=== PATIENT | female | born 2000 | race Caucasian/White ===

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

== ENCOUNTER 2021-05-06 21:24 | Outpatient (CLI) | payer OTHER ==
[~2021-05-06 21:24] MED LIST: TOPAMAX25 MG PO; TRAZODONE HCL100 MG PO; ZOLOFT25 MG PO
== END 2021-05-07 00:24 | disposition home or self-care (01) ==
LOC: GENOP 21:24
DX: O99.891 Other specified diseases and conditions complicating pregnancy (principal); N89.8 Other specified noninflammatory disorders of vagina; Z20.822 Contact with and (suspected) exposure to COVID-19; Z3A.26 26 weeks gestation of pregnancy; O23.42 Unspecified infection of urinary tract in pregnancy, second trimester; N39.0 Urinary tract infection, site not specified; O99.342 Other mental disorders complicating pregnancy, second trimester; F31.9 Bipolar disorder, unspecified; F90.9 Attention-deficit hyperactivity disorder, unspecified type
CPT/HCPCS: 81001; 83518; G0463; U0002

== ENCOUNTER 2021-05-10 12:18 | Inpatient (IN) | payer OTHER ==
[~2021-05-10] VITALS: Ht 165.1 cm; Wt 84.4 kg
[2021-05-10 13:37] LABS: RED BLOOD COUNT 3.76 M/UL (4.00-5.10); WHITE BLOOD COUNT 6.8 K/UL (4.5-11.0)
== END 2021-05-10 13:56 | disposition short-term general hospital (02) | DRG 833 ==
LOC: GENOP 12:18 → OB 13:19
PROVIDERS: ADMIT Obstetrics & Gynecology
PROC: 4A1HXCZ Monitoring of Products of Conception, Cardiac Rate, External Approach (ICD-10-PCS; principal; 2021-05-10)
DX: O99.342 Other mental disorders complicating pregnancy, second trimester (principal); F31.9 Bipolar disorder, unspecified; Z20.822 Contact with and (suspected) exposure to COVID-19; Z3A.36 36 weeks gestation of pregnancy
CPT/HCPCS: 36415; 85025; 96365; 96368; 96372; J0290; J0610; J0702; J1580; J3475; J7120; U0002

== ENCOUNTER 2021-06-27 15:32 | Observation (INO) | payer OTHER | END 2021-06-28 18:10 | disposition home or self-care (01) | LOC: GENOP 15:32 → OB 20:00 | PROVIDERS: ADMIT Obstetrics & Gynecology | DX: O23.03 Infections of kidney in pregnancy, third trimester (principal); O98.513 Other viral diseases complicating pregnancy, third trimester; A60.03 Herpesviral cervicitis; Z91.040 Latex allergy status; Z88.1 Allergy status to other antibiotic agents; Z3A.33 33 weeks gestation of pregnancy | CPT/HCPCS: 59025; 81001; 87077; 87086; 96360; 96361; 96366; 96367; 96372; 96374; 96375; 96376; G0378; J0595; J0696; J2300; J2405; J7030; J7120 ==

== ENCOUNTER 2021-07-24 06:00 | Inpatient (IN) | payer OTHER ==
[2021-07-24 09:00] LABS: HEMOGLOBIN 12.8 gm/dl (12.3-15.3); RED BLOOD COUNT 4.42 M/UL (4.00-5.10); WHITE BLOOD COUNT 15.3 K/UL (4.5-11.0)
[2021-07-24] MEDS ORDERED: DOCUSATE SODIU100 MG PO (10:38)
[2021-07-24] MEDS ORDERED: IBUPROFEN600 MG PO (10:38)
[2021-07-24] MEDS ORDERED: HYDROCODON-ACE1 EAC4 PO (10:38)
[2021-07-25 05:47] LABS: HEMOGLOBIN 10.5 gm/dl (12.3-15.3)
== END 2021-07-26 15:03 | disposition home or self-care (01) | DRG 788 ==
LOC: OB 06:00
PROVIDERS: Obstetrics & Gynecology; ADMIT Obstetrics & Gynecology
PROC: 3E0234Z Introduction of Serum, Toxoid and Vaccine into Muscle, Percutaneous Approach (ICD-10-PCS; 2021-07-24)
PROC: 10D00Z1 Extraction of Products of Conception, Low, Open Approach (ICD-10-PCS; principal; 2021-07-24 08:20)
DX: O98.513 Other viral diseases complicating pregnancy, third trimester (principal); O99.344 Other mental disorders complicating childbirth; F31.9 Bipolar disorder, unspecified; A60.03 Herpesviral cervicitis; Z20.822 Contact with and (suspected) exposure to COVID-19; F90.9 Attention-deficit hyperactivity disorder, unspecified type; Z37.0 Single live birth; Z3A.37 37 weeks gestation of pregnancy; Z23 Encounter for immunization
CPT/HCPCS: 36415; 81001; 82800; 85014; 85018; 85025; 90715; 96372; C9113; J0690; J1170; J1200; J2270; J2370; J2590; J7120; U0002